=== PATIENT | male | born 1990 | race Two or more races ===

== ENCOUNTER 2019-03-12 18:01 | Emergency (ER) | payer SELFPAY ==
[~2019-03-12] VITALS: Ht 170.2 cm; Wt 63.5 kg
[~2019-03-12 18:01] MED LIST: UNOBMED
--- NOTE | 2019-03-12 18:25 | Emergency Room Report ---
History of Present Illness General Chief Complaint: Alcohol Intoxication Source: Patient Present Illness HPI 28-year-old male presents with possible alcohol intoxication, patient is refusing to answer questions unknown start time aggravated by alcohol, alleviated by not drinking severity is mild, symptoms are constant, patient is just sleeping in the stretcher refusing to answer questions, patient wants to be left alone. Allergies: Coded Allergies: UNABLE TO ASSESS (Unverified , 03/12/19) Patient History Limited by: medical condition - Currently intoxicated Reviewed Nursing Documentation: PMH: Agreed; PSxH: Agreed Nursing Documentation-PMH Past Medical History: Deferred Review of Systems All Other Systems: limited - Currently intoxicated Physical Exam Vital Signs Date Time Temp Pulse Resp B/P (MAP) Pulse Ox O2 Delivery O2 Flow Rate FiO2 03/12/19 17:58 98.2 71 16 127/82 (97) 97 General Appearance: no apparent distress, non-toxic Head: normocephalic, atraumatic Eyes: bilateral eye PERRL, bilateral eye EOMI ENT: hearing grossly normal, normal voice Neck: full range of motion, supple Respiratory: no respiratory distress, speaking full sentences - When woken up Cardiovascular #1: regular rate, rhythm, no edema, no gallop, no murmur Gastrointestinal: non tender, soft Musculoskeletal: normal inspection Neurologic: alert, responsive Skin: no rash Medical Decision Making Diagnostic Impression: Primary Impression: Acute alcoholic intoxication Qualified Codes: F10.920 - Alcohol use, unspecified with intoxication, uncomplicated ER Course 28-year-old male presents with acute alcohol intoxication pending sobriety Reevaluation 8:47 PM, patient is asymptomatic, completely back to baseline back gait intact Last Vital Signs Date Time Temp Pulse Resp B/P (MAP) Pulse Ox O2 Delivery O2 Flow Rate FiO2 03/12/19 17:58 98.2 71 16 127/82 (97) 97 Disposition: HOME, SELF-CARE Condition: [facility] Patient Instructions: Alcohol Intoxication, [id number] Additional Instructions: The patient was provided with discharge instructions, notified to follow-up with a primary care doctor and or specialist in the next 24-48 hours, and to return to the ED if they have worsening of their symptoms. Please note that this report is being documented using [employer] technology. This can lead to erroneous entry secondary to incorrect interpretation by the dictating instrument. Iglesia Skaggs MD Mar 12, 2019 18:25
[2019-03-12 19:05] VITALS: BP 127/82
--- NOTE | 2019-03-12 19:05 | NUR ---
ED Nurse Note: PATIENT WAS BROUGHT IN TO ER BY [facility] FROM [facility]. STANDBYER CALLED AFTER SEEING PT SLEEPING IN FRONT OF [facility]. PT NOT ANSWERING QUESTIONS. PATIENT PRESENTED WITH STRONG ALCOHOL SMELL, AAOX0, VSS AT THIS TIME, SKIN IS DRY WARM TO TOUCH.
[2019-03-12 21:10] VITALS: BP 127/82
--- NOTE | 2019-03-12 21:11 | NUR ---
ED Nurse Note: Pt cleared by health care Provider for discharge. DC instructions/prescription was given and explained to pt and verbalized understanding of teachings. All medical deviecs such as ID band and IV removed. Pt is AAO x4, ambulatory with steady gate, and left with all personal belongings.
== END 2019-03-12 21:10 | disposition home or self-care (01) ==
LOC: EDBD 18:01 → EMR 20:55
DX: F10.920 Alcohol use, unspecified with intoxication, uncomplicated (principal)
CPT/HCPCS: 99282